=== PATIENT | female | born 1940 | race Caucasian/White ===

== ENCOUNTER → 2016-04-28 | Outpatient (CLI) | payer MEDICARE, OTHER ==
[~2016-04-28] MED LIST: AMBI5TAB PO; ASPI81 PO; CIPR500T4 PO; DIOV40TA PO; SERT-132 PO; SIMV20 PO; SYNT25TA PO
[2016-04-28 13:13] LABS: ALT (GPT) 18 U/L (10-53); ANION GAP 6 MEQ/L (5-15); BICARBONATE 27.3 MEQ/L (21.0-32.0); BLOOD UREA NITROGEN 14 MG/DL (7-18); CHLORIDE 110 MEQ/L (98-107); GLOMERULAR FILTRATION RATE 67 ML/MIN (>89); GLUCOSE,FASTING 85 MG/DL (74-99); POTASSIUM 4.5 MEQ/L (3.5-5.1); SODIUM (NA) 143 MEQ/L (136-145)
[2016-04-28 13:19] LABS: BLOOD, URINE NEG (NEG); GLUCOSE,URINE NEG (NEG); KETONE, URINE NEG (NEG); NITRITE,URINE NEG (NEG); SQUAMOUS EPITHELIAL CELL URINE 1 /hpf (0-5); TRANSITIONAL EPI CELLS, URINE <1 /hpf; URINE COLOR LIGHT-YELLOW (YELLW/STRAW)
[2016-04-28 13:22] LABS: HDL CHOLESTEROL 66.6 MG/DL (40.0-60.0); LDL CHOLESTEROL 79 MG/DL (0-99)
[2016-04-28 13:26] LABS: COMMENT (UR) CULT NOT INDICATED; CULTURE IF INDICATED CULT NOT INDICATED
[2016-04-28 16:58] LABS: HEMOGLOBIN A1a 1.1 %; HEMOGLOBIN A1b 0.7 %; HEMOGLOBIN Ao 86.1 %; HEMOGLOBIN F 0.7 %; HEMOGLOBIN LA1C 1.8 %; HEMOGLOBIN P3 3.5 %
== END ==
LOC: PLAB 08:35
DX: E78.5 Hyperlipidemia, unspecified (principal); I10 Essential (primary) hypertension; R73.09 Other abnormal glucose; E03.9 Hypothyroidism, unspecified; R32 Unspecified urinary incontinence; Z51.81 Encounter for therapeutic drug level monitoring
CPT/HCPCS: 36415; 80048; 80061; 81001; 83036; 84443; 84460

== ENCOUNTER 2017-04-15 08:54 | Emergency (ER) | payer MEDICARE, OTHER ==
[~2017-04-15] VITALS: Ht 157.5 cm; Wt 63.5 kg
[2017-04-15 09:03] VITALS: BP 125/58; PULSE 67; RESP 18; TEMP 98.6; O2SAT 98
[2017-04-15 09:43] VITALS: BP 132/88; PULSE 63; RESP 16; O2SAT 100
[2017-04-15 09:45] LABS: AUTOMATED NEUTROPHIL # 3.2 TH/MM3 (1.8-7.7); BASOPHIL % 0.8 % (0.0-2.0); EOSINOPHIL # 0.2 TH/MM3 (0-0.4); HEMATOCRIT 33.4 % (35.0-46.0); HEMOGLOBIN 11.7 GM/DL (11.6-15.3); LYMPHOCYTE # 1.4 TH/MM3 (1.0-4.8); MEAN CELL VOLUME 90.3 FL (80.0-100.0); MEAN CORPUSCULAR HEMOGLOBIN 31.8 PG (27.0-34.0); MEAN CORPUSCULAR HGB CONC 35.2 % (32.0-36.0); MEAN PLATELET VOLUME 7.3 FL (7.0-11.0); MONO % 8.6 % (0.0-8.0); MONOCYTE # 0.5 TH/MM3 (0-0.9); NEUT % 61.6 % (16.0-70.0); PLATELET COUNT 302 TH/MM3 (150-450); RED CELL DISTRIBUTION WIDTH 13.9 % (11.6-17.2); WHITE BLOOD COUNT 5.3 TH/MM3 (4.0-11.0)
[2017-04-15] MEDS ORDERED: ASPI1TAB57 PO (09:47)
[2017-04-15] MEDS ORDERED: SIMV20TA PO (09:47)
[2017-04-15] MEDS ORDERED: METO25TA3 PO (09:47)
[2017-04-15] MEDS ORDERED: SERT-132 PO (09:47)
[2017-04-15] MEDS ORDERED: VALS1TAB65 PO (09:47)
[2017-04-15] MEDS ORDERED: BIOTCAP PO (09:47)
[2017-04-15] MEDS ORDERED: LEVO25TA4 PO (09:47)
[2017-04-15] MEDS ORDERED: AMBI10TA PO (09:47)
[2017-04-15] MEDS ORDERED: CHOL5000 PO (09:47)
[2017-04-15 10:02] LABS: BICARBONATE 26.5 MEQ/L (21.0-32.0); BLOOD UREA NITROGEN 16 MG/DL (7-18); CHLORIDE 105 MEQ/L (98-107); CREATININE 0.86 MG/DL (0.50-1.00); GLOMERULAR FILTRATION RATE 64 ML/MIN (>89); GLUCOSE,RANDOM 90 MG/DL (74-106); PROTHROMBIN TIME - PATIENT 10.1 SEC (9.8-11.6); SODIUM (NA) 138 MEQ/L (136-145)
[2017-04-15 10:07] LABS: TROPONIN I LESS THAN 0.02 NG/ML (0.02-0.05)
--- NOTE | 2017-04-15 10:10 | PD ---
HPI Chief Complaint: General Weakness Time Seen by Provider: 09:50 Travel History International Travel<30 days: No Contact w/Intl Traveler<30days: No Traveled to known affect area: No History of Present Illness HPI This patient reports that she flew back home to [facility] on Tuesday. During the flight she was dizzy and lightheaded and passed out. She woke up and had vomited on herself. She did not have any chest pain. She complains of headache for 3-4 days. It's moderately severe and frontal. No thunderclap onset. No fever or head injury. She has not had syncope in the last 3-4 days. Today she has some vague general malaise. 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 She is not short of breath. Denies any neuro complaints such as muscle weakness or sensory loss or speech slurring or confusion. Symptoms on Tuesday were moderately severe but seems to have improved since then. No alleviating factors. No exacerbating factors. PFSH Past Medical History Hx Anticoagulant Therapy: Yes (BABY ASA DAILY) Arthritis: No Asthma: No Autoimmune Disease: No Blood Disorders: No Anxiety: No Depression: No Heart Rhythm Problems: No Cancer: No Cardiovascular Problems: Yes (AORTIC VALVE) High Cholesterol: Yes Chemotherapy: No Chest Pain: No Congestive Heart Failure: No COPD: No Diabetes: No Diminished Hearing: No Endocrine: Yes Gastrointestinal Disorders: Yes GERD: No Glaucoma: No Genitourinary: No Headaches: No Hepatitis: No Hiatal Hernia: No Hypertension: Yes Immune Disorder: No Implanted Vascular Access Dvce: No Kidney Stones: No Medical other: Yes (central rentinal vein occlusion) Musculoskeletal: No Neurologic: No Psychiatric: No Reproductive: No Respiratory: No Immunizations Current: Yes Migraines: No Myocardial Infarction: No Radiation Therapy: No Renal Failure: No Seizures: No Sickle Cell Disease: No Sleep Apnea: No Thyroid Disease: Yes (HYPO) Ulcer: No Influenza Vaccination: No PNEUMOCCOCAL Vaccine (Year): 2 Menopausal: Yes : 4 Para: 3 Miscarriage: 1 Past Surgical History Abdominal Surgery: No AICD: No Appendectomy: No Arteriovenous Shunt: No Cardiac Surgery: No Cholecystectomy: No Ear Surgery: No Endocrine Surgery: No Eye Surgery: No Genitourinary Surgery: No Gynecologic Surgery: No Insulin Pump: No Joint Replacement: No Neurologic Surgery: No Oral Surgery: No Pacemaker: No Thoracic Surgery: No Valve Replacement: Yes (AORTIC AUGUST 2014) Other Surgery: No Social History Alcohol Use: Yes (OCC) Tobacco Use: No Substance Use: No Allergies-Medications (Allergen,Severity, Reaction): Coded Allergies: morphine (Unverified Allergy, Severe, VOMITING, 09/21/16) aspirin (Unverified Adverse Reaction, Intermediate, Nausea/Vomiting, ) Reported Meds & Prescriptions Reported Meds & Active Scripts Active Reported Ambien (Zolpidem Tartrate) 10 Mg Tab 10 Mg PO HS PRN Valsartan 160 Mg Tab 160 Mg PO DAILY Simvastatin 20 Mg Tab 20 Mg PO DAILY Biotin 5 Mg Cap 5 Mg PO Vitamin D3 (Cholecalciferol) 5,000 Unit Cap 5,000 Units PO DAILY Aspirin 81 (Aspirin) 81 Mg Tabdr 81 Mg PO DAILY Levothyroxine (Levothyroxine Sodium) 25 Mcg Tab 25 Mcg PO DAILY Metoprolol Tartrate 25 Mg Tab 25 Mg PO BID Sertraline (Sertraline HCl) 50 Mg Tab 50 Mg PO DAILY Review of Systems General / Constitutional: No: Fever Eyes: No: Visual changes HENT: Positive: Headaches, Lightheadedness Cardiovascular: Positive: Syncope, No: Chest Pain or Discomfort Respiratory: No: Shortness of Breath Gastrointestinal: Positive: Nausea, Vomiting, No: Abdominal Pain Genitourinary: No: Dysuria Musculoskeletal: Positive: Weakness, No: Pain Skin: No Rash Neurologic: Positive: Weakness, Dizziness, Syncope, Headache Psychiatric: No: Depression Endocrine: No: Polydipsia Hematologic/Lymphatic: No: Easy Bruising Physical Exam Narrative GENERAL: Well-nourished, well-developed patient in no apparent distress. SKIN: Focused skin assessment reveals no rash and nodules. Skin is Warm and dry. HEAD: Atraumatic. Normocephalic. EYES: Pupils equal and round. No scleral icterus. No injection or drainage. ENT: No nasal bleeding or discharge. Mucous membranes pink and moist. NECK: Trachea midline. No JVD. CARDIOVASCULAR: Regular rate and rhythm. No murmur appreciated. RESPIRATORY: No accessory muscle use. Clear to auscultation. Breath sounds equal bilaterally. GASTROINTESTINAL: Abdomen soft, non-tender, nondistended. Hepatic and splenic margins not palpable. MUSCULOSKELETAL: No obvious deformities. No clubbing. No cyanosis. No edema. NEUROLOGICAL: Awake and alert. No obvious cranial nerve deficits. Motor grossly within normal limits. Normal speech. PSYCHIATRIC: Appropriate mood and affect; insight and judgment normal. Data Data Last Documented VS Vital Signs Date Time Temp Pulse Resp B/P (MAP) Pulse Ox O2 Delivery O2 Flow Rate FiO2 04/15/17 09:43 63 16 132/88 (103) 100 Room Air 04/15/17 09:03 98.6 Orders Orders Electrocardiogram (04/15/17 09:07) Complete Blood Count With Diff (04/15/17 09:07) Basic Metabolic Panel (Bmp) (04/15/17 09:07) Ckmb (Isoenzyme) Profile (04/15/17 09:07) Troponin I (04/15/17 09:07) Prothrombin Time / Inr (Pt) (04/15/17 09:07) Act Partial Throm Time (Ptt) (04/15/17 09:07) D-Dimer (04/15/17 09:15) Ct Brain W/O Iv Contrast(Rout) (04/15/17 ) Annual Giving Director / Telemetry [email or web address] (04/15/17 09:57) Labs Laboratory Tests Test 04/15/17 09:20 White Blood Count 5.3 TH/MM3 Red Blood Count 3.70 MIL/MM3 Hemoglobin 11.7 GM/DL Hematocrit 33.4 % Mean Corpuscular Volume 90.3 FL Mean Corpuscular Hemoglobin 31.8 PG Mean Corpuscular Hemoglobin Concent 35.2 % Red Cell Distribution Width 13.9 % Platelet Count 302 TH/MM3 Mean Platelet Volume 7.3 FL Neutrophils (%) (Auto) 61.6 % Lymphocytes (%) (Auto) 26.0 % Monocytes (%) (Auto) 8.6 % Eosinophils (%) (Auto) 3.0 % Basophils (%) (Auto) 0.8 % Neutrophils # (Auto) 3.2 TH/MM3 Lymphocytes # (Auto) 1.4 TH/MM3 Monocytes # (Auto) 0.5 TH/MM3 Eosinophils # (Auto) 0.2 TH/MM3 Basophils # (Auto) 0.0 TH/MM3 CBC Comment DIFF FINAL Differential Comment Prothrombin Time 10.1 SEC Prothromb Time International Ratio 1.0 RATIO Activated Partial Thromboplast Time 24.0 SEC D-Dimer Quantitative (PE/DVT) 0.38 MG/L FEU Blood Urea Nitrogen 16 MG/DL Creatinine 0.86 MG/DL Random Glucose 90 MG/DL Calcium Level 9.0 MG/DL Sodium Level 138 MEQ/L Potassium Level 3.9 MEQ/L Chloride Level 105 MEQ/L Carbon Dioxide Level 26.5 MEQ/L Anion Gap 7 MEQ/L Estimat Glomerular Filtration Rate 64 ML/MIN Total Creatine Kinase 58 U/L Troponin I LESS THAN 0.02 NG/ML MDM Medical Decision Making Medical Screen Exam Complete: Yes Emergency Medical Condition: Yes Medical Record Reviewed: Yes Differential Diagnosis Cardiac arrhythmia, vasovagal episode, intracranial hemorrhage, migraine Narrative Course I have reviewed the patient's electronic medical record. Ordered a workup to include labs and EKG and brain CT. She is currently neurologically intact with normal vital signs and a sinus rhythm on extended cardiac monitoring without ectopy I don't see evidence of stroke CBC and metabolic profiles are normal. Cardiac enzymes are normal, d-dimer is normal I reviewed her EKG which shows sinus rhythm without ST elevation Brain CT is normal On recheck of the patient she is doing well. Workup is negative and she is stable for outpatient follow-up Diagnosis Primary Impression: Episode of syncope Qualified Codes: R55 - Syncope and collapse Additional Impressions: Malaise Hx of artificial heart valve replacement Additional Instructions: The patient was advised to follow up with their physician and return if they worsen. Med/Other Pt SpecificInfo: Other Disposition: 01 DISCHARGE HOME Condition: Stable Domenic Sahni MD Apr 15, 2017 10:10
--- NOTE | 2017-04-15 10:24 | RADRPT ---
EXAM DATE/TIME: 04/15/2017 10:09 [facility] COMPARISON: CT BRAIN W/O CONTRAST, January 08, 2015, 10:16. INDICATIONS : Headache, blurred vision, syncopal episode three days ago. RADIATION DOSE: 56.35 CTDIvol (mGy) MEDICAL HISTORY : Cardiovascular disease. Stroke Hypothyroidism. SURGICAL HISTORY : None. ENCOUNTER: Initial ACUITY: 1 day PAIN SCALE: 5/10 LOCATION: Bilateral cranial TECHNIQUE: Multiple contiguous axial images were obtained of the head. Using automated exposure control and adj ustment of the mA and/or kV according to patient size, radiation dose was kept as low as reasonably a chievable to obtain optimal diagnostic quality images. DICOM format image data is available electro nically for review and comparison. FINDINGS: CEREBRUM: The ventricles are normal for age. No evidence of midline shift, mass lesion, hemorrhage or acute in farction. No extra-axial fluid collections are seen. POSTERIOR FOSSA: The cerebellum and brainstem are intact. The 4th ventricle is midline. The cerebellopontine angle i s unremarkable. EXTRACRANIAL: The visualized portion of the orbits is intact. SKULL: The calvaria is intact. No evidence of skull fracture. CONCLUSION: Negative for acute process. Andrea Gillette MD FACR on April 15, 2017 at 10:21 Board Certified Radiologist. This report was verified electronically.
--- NOTE | 2017-04-16 23:17 | EKG ---
Date Performed: 04/15/2017 Time Performed: 09:13:06 PTAGE: 76 years EKG: Sinus rhythm LOW QRS VOLTAGE IN PRECORDIAL LEADS BORDERLINE ECG PREVIOUS TRACING : 02/28/2015 03.43 Compared to prior tracing, previous ST/T wave changes no l onger noted DOCTOR: Meir Dover Interpretating Date/Time 04/16/2017 23:15:18
== END 2017-04-15 12:00 | disposition home or self-care (01) ==
LOC: NEPE 08:54
DX: R55 Syncope and collapse (principal); R53.81 Other malaise; R51 Headache; E03.9 Hypothyroidism, unspecified; E78.00 Pure hypercholesterolemia, unspecified; I10 Essential (primary) hypertension; Z95.2 Presence of prosthetic heart valve
CPT/HCPCS: 70450; 80048; 82550; 84484; 85025; 85379; 85610; 85730; 93005; 99285

== ENCOUNTER → 2017-04-27 | Outpatient (CLI) | payer MEDICARE, OTHER ==
[~2017-04-27] MED LIST changes: +AMBI10TA PO; -AMBI5TAB PO; +ASPI1TAB57 PO; -ASPI81 PO; +BIOTCAP PO; +CHOL5000 PO; -CIPR500T4 PO; -DIOV40TA PO; +LEVO25TA4 PO; +METO25TA3 PO; -SIMV20 PO; +SIMV20TA PO; -SYNT25TA PO; +VALS1TAB65 PO
[2017-04-27 10:36] LABS: BILIRUBIN, URINE NEG (NEG); BLOOD, URINE NEG (NEG); GLUCOSE,URINE NEG (NEG); KETONE, URINE NEG (NEG); NITRITE,URINE NEG (NEG); SQUAMOUS EPITHELIAL CELL URINE <1 /hpf (0-5); URINE COLOR YELLOW (YELLW/STRAW); URINE LEUKOCYTE ESTERASE LARGE (NEG)
[2017-04-27 10:51] LABS: BICARBONATE 26.4 MEQ/L (21.0-32.0); BLOOD UREA NITROGEN 14 MG/DL (7-18); CALCIUM 8.9 MG/DL (8.5-10.1); CHLORIDE 107 MEQ/L (98-107); CREATININE 0.84 MG/DL (0.50-1.00); GLOMERULAR FILTRATION RATE 66 ML/MIN (>89); GLUCOSE,FASTING 89 MG/DL (74-99); SODIUM (NA) 141 MEQ/L (136-145)
[2017-04-27 10:53] LABS: CHOLESTEROL 162 MG/DL (120-200); TRIGLYCERIDES 53 MG/DL (42-150)
[2017-04-27 11:03] LABS: CHOLESTEROL/ HDL RATIO 2.63 RATIO; HDL CHOLESTEROL 61.5 MG/DL (40.0-60.0); LDL CHOLESTEROL 90 MG/DL (0-99)
[2017-04-27 18:18] LABS: HEMOGLOBIN A1C 5.2 % (4.3-6.0)
== END ==
LOC: PLAB 08:15
DX: R55 Syncope and collapse (principal); I10 Essential (primary) hypertension; E03.9 Hypothyroidism, unspecified; R73.09 Other abnormal glucose; E78.5 Hyperlipidemia, unspecified; E55.9 Vitamin D deficiency, unspecified; Z51.81 Encounter for therapeutic drug level monitoring
CPT/HCPCS: 36415; 80048; 80061; 81001; 82043; 82306; 83036; 84443